=== PATIENT | male | born 1940 | race Caucasian/White ===

== ENCOUNTER 2022-04-12 07:44 | Observation (INO) ==
--- NOTE | 2022-03-09 15:38 | PAT Medication Instructions ---
Medication Instructions Date of Service March 09, 2022 Home Medications apixaban 5 mg tablet (Eliquis) 5 mg PO QAM amlodipine 10 mg tablet 10 mg PO QAM losartan 100 mg tablet 100 mg PO HS metformin 850 mg tablet 850 mg PO QPM metoprolol succinate 25 mg tablet,extended release 24 hr 25 mg PO QAM simvastatin 20 mg tablet 20 mg PO HS ASK your prescriber and surgeon apixaban 5 mg tablet (Eliquis) 5 mg PO QAM (in order for spinal anesthesia, Apixaban needs to be stopped 72 hours/3 days before surgery. Please check if okay with doctor that prescribes this to you) Take morning of surgery With a small sip of water, OTHERWISE NOTHING TO EAT OR DRINK AFTER MIDNIGHT: amlodipine 10 mg tablet 10 mg PO QAM metoprolol succinate 25 mg tablet,extended release 24 hr 25 mg PO QAM Take evening before surgery losartan 100 mg tablet 100 mg PO HS metformin 850 mg tablet 850 mg PO QPM simvastatin 20 mg tablet 20 mg PO HS Other Notes If you have any questions please call us at [phone] or [phone] or [phone] or [phone]
--- NOTE | 2022-03-15 11:36 | Anesthesiology Consultation ---
Date of Service March 15, 2022 Assessment & Plan (1) Encounter for pre-operative examination: Chart Review Chart Review: Acceptable Risk for Surgery and Patient seen in Pre Admission Testing - Check BSG AM DOS - Due to age- patient is NOT a Same Day Joint candidate Per PAT appt on 03/15/22, patient denies any recent travel or large group activities. Pt is vaccinated for Covid. Will leave to surgeon's discretion if preop Covid testing needed. Educated on importance of using Covid precautions one week prior to surgery Teaching & Discussion Pre-Anesthesia Teaching/Discussion Notes: Instructed NPO after midnight before surgery,except medications with 15 cc of water. Medication instructions provided according to the PAT guidelines. History Surgery Operation Date: 04/12/22 08:50 Proposed Procedures p Right Total Knee Arthroplasty - Sarkis Barboza DO Height/Weight Height: 6 ft 2 in Weight: 118.4 kg Allergies Allergy/AdvReac Type Severity Reaction Status Date / Time [facility] Allergy Intermediate Rash Verified 03/09/22 13:25 Penicillins Allergy Unknown hives, Verified 03/09/22 13:25 turns red lisinopril AdvReac Unknown "unsure of Verified 03/09/22 13:25 reaction" KEFLEX Allergy Intermediate Hives Uncoded 03/09/22 13:25 Medications Home Medications Medication Instructions Recorded Confirmed Last Taken apixaban 5 mg tablet (Eliquis) 5 mg PO QAM 01/26/22 03/09/22 Unknown amlodipine 10 mg tablet 10 mg PO QAM 03/09/22 03/09/22 Unknown losartan 100 mg tablet 100 mg PO HS 03/09/22 03/09/22 Unknown metformin 850 mg tablet 850 mg PO QPM 03/09/22 03/09/22 Unknown metoprolol succinate 25 mg 25 mg PO QAM 03/09/22 03/09/22 Unknown tablet,extended release 24 hr simvastatin 20 mg tablet 20 mg PO HS 03/09/22 03/09/22 Unknown Past Medical History Medical History Diabetes mellitus, type 2 On oral meds- glucose controlled per patient Hx of hearing loss Bilateral hearing aids-"doesn't wear them all the time." Hyperlipemia Hypertension Osteoarthritis Pulmonary embolism 04/30/20>hospitalized for at On license of [facility], on Eliquis for "Covid lung, blood clots in lungs, but never tested positive for Covid" Exercise / Class Metabolic Activity II 4-5 Yardwork/Stairs/Walk up hill (one flight of stairs - no chest pain or SOB ) Past Surgical History Surgical History (Updated 03/15/22 @ 11:32 by Ellie Webb PA-C) History of cardiac cath ~10 years ago, On license of [facility], no stents; f/u [facility]- "told he had a false positive on his stress test, that was the reason for the cath." History of esophagogastroduodenoscopy (EGD) History of open reduction and internal fixation (ORIF) procedure LT arm 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 Hx of colonoscopy Hx of prostatectomy Past Anesthesia History No Hx of Anesthesia Complications and No Family Hx of Anesthesia Complications History of PONV No Hx of PONV and No Hx of Motion Sickness Social History Smoking Status: Never smoker Do You Dip or Chew Tobacco: No Hx Alcohol Use: No Hx Substance Use: No substance use type: does not use Review of Systems Patient denies chest pain, shortness of breath, dyspnea on exertion, reflux, cough, wheezing, palpitations. No hx of seizures, stroke, MA, apnea/snoring. No hx of blood clots or blood transfusions Physical Exam Vital Signs VITALS BP 145/72 P 64 TEMP 97.5 SP02 98% RESP 16 Constitutional no acute distress ENMT Mouth: no TMJ clicking Thyromental Distance: < 3.5 Finger Breadths (3.0) Mallampati Class: II Left top side tooth missing tooth Neck + limited neck extension Respiratory normal respiratory effort; no respiratory distress Auscultation: lungs clear to auscultation bilaterally; no wheezes Cardiovascular Rate/Rhythm: regular rate and regular rhythm Heart Sounds: no murmur Vessels: no carotid bruit Musculoskeletal Spine: no pain with cervical ROM Extremities: extremities normal to inspection Psychiatric Orientation: alert Lab Results Anesthesia Preop Results Results Anesthesia Widget: WBC 5.35 K/ul (4.8-10.8) 03/15/22 Hgb 13.7 g/dl (14.0-18.0) L 03/15/22 Hct 41.3 % (40.1-51.0) 03/15/22 Plt 187 K/uL (130-400) 03/15/22 Na 142 mmol/L (136-145) 03/15/22 K 4.3 mmol/L (3.5-5.1) 03/15/22 Cl 109 mmol/L (98-107) H 03/15/22 CO2 28 mmol/L (21-32) 03/15/22 BUN 29 mg/dl (6-23) H 03/15/22 Creat 1.41 mg/dl (0.6-1.4) H 03/15/22 Glucose Level 95 mg/dl (70-99(Fasting)) 03/15/22 PT 10.7 Seconds (9.0-12.0) 03/15/22 PTT 34.2 Seconds (21.0-31.0) H 03/15/22 INR 1.0 (0.9-1.1) 03/15/22 HA1c 6.0 % (4.5-5.6) H 03/15/22 Blood Type A Positive 03/15/22 Antibody Screen NEGATIVE 03/15/22 Testing Electrocardiogram Date: 03/15/22 SR with PACs at 78 bpm LAFB. Non-specific intraventricular conduction block Nonspecific T wave abnormality Chest X-Ray Date: 03/15/22 Findings: + NAD COVID-19 Risk Screen Screening Information COVID-19 Screen Date: 03/15/22 Exposure 21 Days Family/Household +COVID Last 21 Days: No Exposure 10 Days Any COVID Exposure Last 10 Days: No Symptoms Last 10 Days Experienced COVID Sx Last 10 Days: No + COVID 0-90 Days COVID + in Last 0-90 Days: No Risk Plan COVID Risk Plan: No Risk Identified Patient Education COVID Preop Screening Education Complete: Yes
--- NOTE | 2022-04-08 13:24 | History & Physical Report ---
Date of Service April 08, 2022 Assessment & Plan (1) Osteoarthritis of right knee: We will proceed with a right total knee arthroplasty. Postoperatively he will be started on Eliquis for DVT prophylaxis and kept overnight in the hospital for postop medical management. He plans to have the hospital set up home health before discharge. History of Present Illness Chief Complaint: Osteoarthritis of the right knee. Primary Care Provider: Tati Root DO Olegario is a pleasant 81-year-old male who has been dealing with chronic worsening right knee pain. It has been going on for years. It has been much worse over the past few months. He does have a history of left knee replacement done in another institution. Unfortunately, he had an infection after an urinary tract infection and have a revision of his knee. His left knee is doing well now. He is not on any antibiotics. 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 He has been on Eliquis for that. After failing conservative treatment, he has elected proceed with a right total knee arthroplasty. Allergies Allergy/AdvReac Type Severity Reaction Status Date / Time cefadroxil [From [facility]] Allergy Intermediate Rash Verified 03/09/22 13:25 Penicillins Allergy Unknown hives, Verified 03/09/22 13:25 turns red lisinopril AdvReac Unknown "unsure of Verified 03/09/22 13:25 reaction" KEFLEX Allergy Intermediate Hives Uncoded 03/09/22 13:25 Home Medications Medication Instructions Recorded Confirmed Type apixaban 5 mg tablet (Eliquis) 5 mg PO QAM 01/26/22 03/09/22 History amlodipine 10 mg tablet 10 mg PO QAM 03/09/22 03/09/22 History losartan 100 mg tablet 100 mg PO HS 03/09/22 03/09/22 History metformin 850 mg tablet 850 mg PO QPM 03/09/22 03/09/22 History metoprolol succinate 25 mg 25 mg PO QAM 03/09/22 03/09/22 History tablet,extended release 24 hr simvastatin 20 mg tablet 20 mg PO HS 03/09/22 03/09/22 History Past Med/Surg History Medical History Diabetes mellitus, type 2 On oral meds- glucose controlled per patient Hx of hearing loss Bilateral hearing aids-"doesn't wear them all the time." Hyperlipemia Hypertension Osteoarthritis Pulmonary embolism 04/30/20>hospitalized for at [facility] [place], on Eliquis for "Covid lung, blood clots in lungs, but never tested positive for Covid" Surgical History History of cardiac cath ~10 years ago, [facility], no stents; f/u [facility]- "told he had a false positive on his stress test, that was the reason for the cath." History of esophagogastroduodenoscopy (EGD) History of open reduction and internal fixation (ORIF) procedure LT arm 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 Physical Exam On physical examination the right knee, there is a significant varus deformity. He walks with a very antalgic gait. His range of motion from 10 to 110 degrees. He has significant pain of the distal medial femoral condyle.. Constitutional WD/WN, vitals as above Eyes PERRL, conjunctivae normal, anicteric sclerae ENMT external ear and nose normal, oropharynx normal Neck trachea midline, no thyromegaly Respiratory normal respiratory effort, lungs clear to auscultation Cardiovascular RRR, no murmur, no edema Gastrointestinal (Abdomen) normal bowel sounds, soft, nontender, no hepatosplenomegaly Skin no rashes, warm and dry Psychiatric A+Ox3, euthymic affect Results & Data Results & Data Laboratory Results . Diagnostic Findings X-rays of the right knee show advanced osteoarthritis with joint space narrowing, osteophyte formation, and [id number] articulation. PG Care Time/CCT Total # of Minutes Spent Total Time Spent with Patient: Total time spent is greater than 50% in coordination of care (as documented) at patient's floor/unit and/or counseling patient: Coding Level of Care Code None Diagnoses Osteoarthritis of right knee M17.11
[~2022-04-12 07:44] MED LIST: ACETAMINOPHEN 500 MG TAB PO SCH; BUPIVACAINE 0.25% 30 ML VIAL ONE; BUPIVACAINE 0.5 % 5 MG/1 ML PF 10ML VIAL ONE; FAMOTIDINE 20 MG TAB PO SCH; GABAPENTIN 300 MG CAP PO SCH; Ketorolac (*for OR use only*) 30 MG, dexAMETHasone 4 MG, KETAMINE HCL (**OR use only) 1... INFIL SCH; LR 500ML BOLUS, THEN 15ML/HR IV SCH; LR 60ML/HR IV SCH; TRANEXAMIC ACID 1,000 MG **IV Intra-op IV SCH; TRANEXAMIC ACID 1,000 MG **IV Pre-op IV SCH; ceFAZolin 2000MG 2,000 MG/15 ML SYR IV SCH; dexAMETHasone 4 MG TAB PO SCH
--- NOTE | 2022-04-12 08:18 | History & Physical Bridge Note ---
Date of Service April 12, 2022 History & Physical Bridge Note I have examined the patient, reviewed the History & Physical and in the interval since the performance of the History & Physical I have noted the following changes of clinical significance: no changes noted
[2022-04-12] MEDS ORDERED: LIDOCAINE 2% MPF LOCAL 5 ML VIAL INFIL ONE (09:41)
[2022-04-12] MEDS ORDERED: ONDANSETRON INJ 2 MG/ML 2 ML VIAL ONE (09:41)
[2022-04-12] MEDS ORDERED: MIDAZOLAM HCL 1 MG/ML 2ML VIAL ONE (09:41)
[2022-04-12] MEDS ORDERED: PROPOFOL IV EMULSION 10 MG/ML 20 ML VIAL IV ONE (09:41)
[2022-04-12] MEDS ORDERED: ePHEDrine sulfate 50 MG/ML AMP IV PRN (10:16)
[2022-04-12] MEDS ORDERED: ONDANSETRON INJ 2 MG/ML 2 ML VIAL IV PRN ×2 (10:16→15:52)
[2022-04-12] MEDS ORDERED: ATROPINE SULFATE 0.1 MG/ML 10ML SYR IV PRN (10:16)
[2022-04-12] MEDS ORDERED: fentaNYL citrate 100 MCG/2 ML VIAL IV PRN (10:16)
[2022-04-12] MEDS ORDERED: Nursing to Pharmacy Communication SCH (10:30)
[2022-04-12] MEDS ORDERED: ORTHO JOINT ANESTHETIC ONE (10:57)
--- NOTE | 2022-04-12 12:47 | Operative Report ---
PG Post Operative Report Pre & Post Diagnosis Operation Date: 04/12/22 10:40 Pre-Op Diagnosis: Right knee degenerative joint disease. Post-Op Diagnosis: Right knee degenerative joint disease. I identified the patient and participated in the time-out.: Yes Procedure Operation Date: 04/12/22 10:40 Actual Procedures p Right Total Knee Arthroplasty(Right) - Sarkis Barboza DO Surgeon Sarkis Barboza DO Last Repairer Sarkis Aguilar PA-C Estimated Blood Loss 50 Findings Consistent with Post-Op Diagnosis Specimens Right femoral and tibial bone Description of Procedure Implants used: I used a Tod Persona total knee arthroplasty system with a size 11 standard PS femur, G tibia, 37 oval patella, and a size 10 CPS polyethylene bearing. All components were cemented in place with Biomet cement. Olegario mariana [facility] for the above procedure. He was seen in the preoperative holding area and the operative extremity was identified and signed. He was given a preoperative antibiotic, TXA, a spinal anesthetic and an adductor nerve block. He was taken back to the operating room and laid on the table in supine position. He was given basic sedation. The operative knee was then prepped and draped in sterile fashion. A timeout was done, and the patient and the operative extremity was properly identified. A midline incision was made directly over the patella. Dissection was taken down to the extensor mechanism. A medial parapatellar arthrotomy was used. The medial retinaculum was released and the fat pad was mostly excised. The knee was flexed and the ACL, PCL, and meniscus were removed. A drill was sent down the center of the femoral canal followed by an intramedullary lucas. Off that lucas a distal femoral cutting block was placed. 9 mm was resected off the distal femur at 5 of valgus. A posterior referencing AP sizing guide was then placed on the distal femur. The femur measured to be a size 11. 2 drill holes were placed in 3 of external rotation. A 4-in-1 cutting block was then impacted into place. Anterior, posterior, and chamfer cuts were then made. The proximal tibia was then exposed. An external tibial alignment guide was placed. A tibial cut guide was then anchored in place and the proximal tibia was then resected. The posterior aspect of the knee was then opened up and any additional meniscus fragments and osteophytes were removed. The tibia measured to be a size G. The tibial plate was then placed in the appropriate rotation and the tibia was drilled and punched. Trial components were then placed. I used a size 10 CPS polyethylene insert. The knee was brought through a full range of motion and felt to be stable. The peg holes for the femoral component were then drilled. The patella was then everted and 9 mm was resected off the posterior aspect of the patella. The patella measured to be a size 37 oval. 3 peg holes were then drilled. A trial patella was placed. The knee was once again brought through a full range of motion and felt to be stable. Trial components were then removed. The surrounding soft tissues were injected with 100 cc of an orthopedic pain control cocktail. All components were then cemented into place with Biomet cement. The final polyethylene insert was then snapped into place. Once cement was dry the tourniquet was deflated. Hemostasis was obtained. A dilute betadyne lavage was then done for 3 minutes. The joint was then irrigated with normal saline solution. The subvastus arthrotomy was then closed with #1 Vicryl suture. The skin was closed with 2-0 Vicryl, 3-0V lock suture, and tanika. A soft compressive dressing was placed. He was then transferred to a hospital bed and taken to the postanesthesia care unit in stable condition. He tolerated the procedure well. Sarkis Aguilar PA-C, was present for the entire procedure. He was critical for patient positioning, prepping, draping, retraction exposure, wound closure and application of sterile dressing. I attest to the content of the Intraoperative Record and any orders documented therein. Any exceptions are noted below.
--- NOTE | 2022-04-12 13:04 | XRay Report ---
XR knee RT 1 or 2V routine CLINICAL HISTORY: Surgical Post Op TECHNIQUE: 2 views of the right knee were obtained. Comparison: Comparison is made to knee radiographs 01/26/2022 FINDINGS: Patient is status post total knee arthroplasty with expected postsurgical changes including soft tiss ue swelling and subcutaneous emphysema. No periarticular lucency or hardware fracture is seen. IMPRESSION: Expected postoperative appearance status post placement of total knee arthroplasty. ACT 112: Negative or not required by law. Electronically signed by: Samuel Jackson M.D. 04/12/2022 1:02 PM
--- NOTE | 2022-04-12 13:45 | Anesthesiology Progress Note ---
Date of Service April 12, 2022 Anesthesia Post Procedure Vital Signs Vital Signs: Temp Pulse Resp BP Pulse Ox O2 Del Method O2 Flow Rate 04/12/22 13:30 51 L 13 108/58 L 98 Oxymask 2 04/12/22 13:20 63 96 H 98/56 L 96 Oxymask 3 04/12/22 13:10 60 19 101/62 97 Oxymask 3 04/12/22 13:00 74 18 94/57 L 100 Oxymask 4 04/12/22 12:53 36.2 C L 54 L 18 99/54 L 99 Oxymask 5 04/12/22 08:33 36.5 C 77 20 157/82 H 97 Room Air Pain Intensity Right Knee: Pain Intensity: 0 Transfer of Care Handoff Completed per policy Notes Mental Status: alert / awake / arousable and participated in evaluation Patient Amnestic to Procedure: Yes Nausea / Vomiting: adequately controlled Pain: adequately controlled Airway Patency, RR, SpO2: stable & adequate BP & HR: stable & adequate Hydration State: stable & adequate Neuraxial Anesthesia: was administered and sensory block is resolving Anesthetic Complications: no major complications apparent and Pt Satisfied with anesthetic care
[2022-04-12] MEDS ORDERED: MAGNESIUM HYDROXIDE SUSP 30 ML UDC PO PRN (15:52)
[2022-04-12] MEDS ORDERED: PHARMACY GLYCEMIC MGMT CONSULT PRN (15:52)
[2022-04-12] MEDS ORDERED: HYDROmorphone INJ 0.5 MG/0.5 ML SYR IV PRN (15:52)
[2022-04-12] MEDS ORDERED: METOCLOPRAMIDE HCL INJ 5 MG/ML 2 ML VIAL IV PRN (15:52)
[2022-04-12] MEDS ORDERED: bisacodyL 10 MG SUPP PR PRN (15:52)
[2022-04-12] MEDS ORDERED: NALOXONE HCL 0.4 MG/1 ML VIAL/CARP IV PRN (15:52)
[2022-04-12] MEDS ORDERED: oxyCODONE HCL IR 5 MG TAB (IMMEDIATE RELEASE) PO PRN (15:52)
[2022-04-12] MEDS ORDERED: SODIUM CHLORIDE 0.9% 1000ML 1,000 ML IV SCH (15:52)
[2022-04-12] MEDS ORDERED: DEXTROSE 50% 50 ML SYRINGE IV PRN (16:15)
[2022-04-12] MEDS ORDERED: CARBOHYDRATES FOR HYPOGLYCEMIA PO PRN (16:15)
[2022-04-12] MEDS ORDERED: GLUCAGON FOR INJ 1 MG VIAL IM PRN (16:15)
[2022-04-12] MEDS ORDERED: GLUCOSE 10 TAB/TUBE PO PRN (16:15)
[2022-04-12] MEDS ORDERED: GLUCOSE 40% GEL 15 GM TUBE PO PRN (16:15)
[2022-04-12] MEDS: ceFAZolin 2000MG 2,000 MG/15 ML SYR IV SCH (17:54)
[2022-04-12] MEDS: INSULIN ASPART PER UNIT SC SCH ×2 (17:56→21:04)
[2022-04-12] MEDS: KETOROLAC TROMETHAMINE 15 MG/ML VIAL IV SCH ×2 (17:57→23:56)
[2022-04-12] MEDS: ACETAMINOPHEN 500 MG TAB PO SCH (17:57)
[2022-04-12] MEDS ORDERED: SENNA 8.6 MG TAB PO SCH (21:00)
[2022-04-12] MEDS ORDERED: SIMVASTATIN 20 MG TAB PO SCH (21:00)
[2022-04-12] MEDS ORDERED: LOSARTAN POTASSIUM 50 MG TAB PO SCH (21:00)
[2022-04-12] MEDS: DOCUSATE SODIUM 100 MG CAP PO SCH (21:06)
[2022-04-12] MEDS: ALLERGY Noted to ORDERED Medication SCH ×5 (22:02→22:51)
[2022-04-13] MEDS: ceFAZolin 2000MG 2,000 MG/15 ML SYR IV SCH (03:54)
[2022-04-13] MEDS: ACETAMINOPHEN 500 MG TAB PO SCH (05:28)
[2022-04-13] MEDS: KETOROLAC TROMETHAMINE 15 MG/ML VIAL IV SCH (05:29)
--- NOTE | 2022-04-13 06:34 | Orthopedic Progress Note ---
Date of Service April 13, 2022 Assessment & Plan (1) Status post right knee replacement: Overall he is doing well. He is not having much pain in the right knee. He will be seen by physical therapy today for ambulation and range of motion exercises. He is on Eliquis for DVT prophylaxis. He can be discharged home later today. He will follow-up with orthopedics in 2 weeks. Gunnar Melvin was seen and examined at bedside this morning. Overall is doing very well. Is not having much pain in the right knee. He has been up and ambulating around the hallways. He has no complaints.. Review of Systems All systems reviewed & are unremarkable except as noted in HPI & below. Physical Exam On physical examination of the right knee, the dressing is clean and dry. His leg is out in full extension. He has active dorsiflexion plantarflexion of his right ankle.. Results & Data Results & Data Laboratory Results . Diagnostic Findings Postoperative x-rays of the right knee show the prosthesis to be in anatomic alignment without any evidence of fracture, desiccation, or loosening.. PG Care Time/CCT Total # of Minutes Spent Total Time Spent with Patient: Total time spent is greater than 50% in coordination of care (as documented) at patient's floor/unit and/or counseling patient: Coding Level of Care Code 49052 Post Operative Follow-Up Diagnoses Status post right knee replacement Z96.651
--- NOTE | 2022-04-13 06:35 | Discharge Summary ---
Date of Service April 13, 2022 Admission HPI (Per Admitting) Olegario is a pleasant 81-year-old male who has been dealing with chronic worsening right knee pain. It has been going on for years. It has been much worse over the past few months. He does have a history of left knee replacement done in another institution. Unfortunately, he had an infection after an urinary tract infection and have a revision of his knee. His left knee is doing well now. He is not on any antibiotics. 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 He has been on Eliquis for that. After failing conservative treatment, he has elected proceed with a right total knee arthroplasty. Admission Exam (Per Admitting) On physical examination the right knee, there is a significant varus deformity. He walks with a very antalgic gait. His range of motion from 10 to 110 degrees. He has significant pain of the distal medial femoral condyle.. Principal Diagnosis Same as "Discharge Diagnosis" noted below under Discharge Instructions. Discharge Exam On physical examination of the right knee, the dressing is clean and dry. His leg is out in full extension. He has active dorsiflexion plantarflexion of his right ankle.. Discharge Data Procedures Performed Operation Date: 04/12/22 10:40 Actual Procedures p Right Total Knee Arthroplasty(Right) - Sarkis Barboza DO Ordered Studies 04/12/22 05:00 US - OR guided needle placemen Routine Hospital Course (1) Status post right knee replacement: On April 12, 2022 Olegario arrived at [facility] and underwent a right knee replacement without complication. He had a spinal anesthetic. Postoperatively he was started on Eliquis for DVT prophylaxis and transferred to the general orthopedic floors. His hospital course was uneventful. On postop day #1, his vital signs were stable and his pain was well controlled. He was able to participate well with physical therapy doing ambulation and range of motion exercises. He was then discharged home. He will follow-up with orthopedics in 2 weeks. PG Care Time/CCT Total # of Minutes Spent Total Time Spent with Patient: Total time spent is greater than 50% in coordination of care (as documented) at patient's floor/unit and/or counseling patient: Discharge Plan Discharge Items Patient Disposition: Home - Home Health Services Reason For Visit: POST OP Discharge Diagnosis: Right knee replacement Activity: Per Instructions section Non-emergency contact: Surgeon Call non-emergency contact if: your wound has increased redness and your wound has increased drainage Follow-up/Referrals: Tati Root DO [Primary Care Provider] - Diet: Regular Addtl Attending Provider Instructions: Activity and Therapy Recommendations: * If you are using [facility] then therapy will be provided at your home until they feel you have accomplished all of your goals. * If you are using [facility] then Physical Therapy will be provided until they feel you are ready to start Outpatient Physical Therapy. * If you are not using home therapy then Outpatient Physical Therapy should start about 3-5 days from your day of surgery. Therapy will last about 6-10 weeks * It is important not to put a pillow under your knee when you are relaxing or sleeping. It is just as important to make sure you are getting your knee perfectly straight as it is to regain your knee bend. * You were shown a series of exercises in the hospital. Do these exercises three times each day including the exercises you were shown in physical therapy. * Get up and walk several times each day. For the first four weeks, try not to stand or walk for more than one hour at a time. If you do stand or walk for more than one hour, you will not hurt anything, but your leg will likely swell. * As you feel comfortable, you may change from the walker or crutches to a cane and then to independent walking. Medications: * Narcotic You will likely be sent home from the hospital with a prescription for the narcotic pain medication that worked best throughout your stay. * Aspirin Most patients will be required to take Aspirin 81mg twice a day for 6 weeks after surgery. This is obtained [id number] and a prescription is not necessary. * Other medications may be prescribed for specific circumstances. If you have any questions, please call the office at . * Resume previous home medications unless otherwise instructed TEDs/Elastic Stockings: The white elastic stockings help limit swelling and prevent blood clots from forming in your legs.~ The more you wear them, the more they work. Wear them for six weeks. Dressing Care: The dressing can be changed after physical therapy on postop day #1. Daily dry dressing changes for a few days, especially if the incision is still draining some. If the incision is not draining then you may leave the tanika open to air. If there is a little bit of drainage or if the tanika are getting stuck on your clothing then cover the incision with a dry dressing. The tanika will be removed at your 2 week follow-up appointment. Showering: You may shower 5 days from the day of surgery as long as the incision is no longer draining. You may shower with the tanika exposed. Let soapy water run over the tanika and pat them dry. Do not scrub or soak the incision. Things To Watch For: * Drainage from the incision site that occurs more than one week after your surgery. * Increased redness at the incision site. * Fever above 102 degrees Fahrenheit. * Unusual chest pain or shortness of breath. * Call [facility] at with any of the above problems Follow-Up Visit: Follow-up with Dr. Barboza's PA (Sarkis Aguilar) 2-3 weeks after your day of s urgery. He will remove your tanika and answer any questions. If you have any additional questions or concerns, Dr Barboza is usually in the office at the same time and will be available An appointment was probably scheduled when you signed-up for surgery in the office. If you have any questions call Office Instructions: More detailed instructions as well as Frequently Asked Questions were provided in a folder by our office when you signed-up for surgery. Please review these instructions when you get home. If you have any further questions or concerns, please feel free to call the office at [phone] Pending Studies at Discharge: No Stand-Alone Forms: My [facility] Medications and DC Order Prescriptions: New oxycodone-acetaminophen 5-325 mg tablet 1 tab PO Q6H PRN (Reason: pain) Qty: 30 0RF Continued Eliquis 5 mg tablet 5 mg PO QAM metformin 850 mg Tablet 850 mg PO QPM Rx Instructions: w/lunch amlodipine 10 mg Tablet 10 mg PO QAM simvastatin 20 mg Tablet 20 mg PO HS metoprolol succinate 25 mg Tablet Extended Release 24 Hr 25 mg PO QAM losartan 100 mg Tablet 100 mg PO HS Discharge Orders: Discharge Order (Routine); Ordered 04/13/22 Ordered By: Sarkis Barboza Admission Data Admit Date/Time: 04/12/22 12:52 Attending Provider: Sarkis Barboza Admit Provider: Sarkis Barboza Primary Care Provider: Tati Root
[2022-04-13] MEDS: DOCUSATE SODIUM 100 MG CAP PO SCH (08:45)
[2022-04-13] MEDS ORDERED: APIXABAN 5 MG TABLET PO SCH (09:00)
[2022-04-13] MEDS ORDERED: METOPROLOL SUCC 25MG EXT REL TAB PO SCH (09:00)
[2022-04-13] MEDS ORDERED: MULTIVITAMIN TAB PO SCH (09:00)
[2022-04-13] MEDS ORDERED: amLODIPine BESYLATE 5 MG TAB PO SCH (09:00)
[2022-04-13] MEDS: INSULIN ASPART PER UNIT SC SCH (09:01)
[2022-04-13 10:34] LABS: Hematocrit (blood only) 33.5 % (40.1-51.0); Hemoglobin 11.1 g/dl (14.0-18.0); Mean Corpuscular Hgb Conc 33.1 g/dL (32.0-36.0); Mean Corpuscular Volume 84.6 fL (80.0-100.0); Mean Platelet Volume 9.9 fL (9.4-12.4); Platelet Count 203 K/uL (130-400); RDW Coefficient of Variation 13.1 % (11.5-14.5); RDW Standard Deviation 40.5 fL (36.4-46.3); Red Blood Count 3.96 M/uL (4.63-6.08); White Blood Count 14.46 K/ul (4.8-10.8)
[2022-04-13 10:47] LABS: BUN Creatinine Ratio 24.2 (10-20); Creatinine Clr Calc Pharmacy 45.2 ml/min; Est GFR (African American) 40.8 ml/min; Est GFR (Non-African American) 35.2 ml/min; Potassium 4.1 mmol/L (3.5-5.1)
== END 2022-04-13 12:55 | disposition home health service (06) ==
LOC: PACUINP 07:44 → ASU 07:44 → 3E 15:50